=== PATIENT | female | born 1960 | race Caucasian/White ===

== ENCOUNTER → 2017-05-05 | Day surgery (SDC) | payer OTHER ==
[~2017-05-05] MED LIST: BUPIVACAINE/EPINEPHRINE 0.5% PF 10 ML VIAL ONE; KETOROLAC TROMETHAMINE 30 MG/ML (IVP) VIAL IV PUSH ONE; LACTATED RINGER'S 1000 ML INJ 1,000 ML ONE; MORPHINE SULFATE 4 MG/ML INJ ONE; ONDANSETRON HCL 4 MG/2 ML VIAL IV PUSH ONE; PROPOFOL 200 MG/20 ML AMP IV ONE; ceFAZolin INJ 1,000 MG VIAL ONE
--- NOTE | 2017-05-05 15:55 | TN ---
cc: ADELSO RM DATE OF SURGERY: 05/05/2017. PREOPERATIVE DIAGNOSIS: 1. Internal derangement of the right knee. 2. Probable medial meniscus tear right knee. 3. Possible lateral meniscus tear right knee. POSTOPERATIVE DIAGNOSIS: 1. Complex bucket handle tear posterior medial meniscus. 2. Osteoarthritis of the right knee, mild. 3. 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 OPERATIVE PROCEDURE PERFORMED: 1. Arthroscopy of the right knee. 2. Arthroscopic medial and partial lateral meniscectomy. 3. Minor abrasion chondroplasty. SURGEON: Adelso Rm MD. ANESTHESIA: General. ESTIMATED BLOOD LOSS Minimal. INDICATIONS FOR THE PROCEDURE: This patient is a 57-year-old female with significant right knee pain. Investigative studies show evidence of a complex tear of the posterior medial meniscus. There may also be a lateral meniscus. She presents for surgical treatment. DESCRIPTION OF THE PROCEDURE IN DETAIL: The patient was brought into the operating room and anesthetized in the supine position. The right leg was scrubbed with alcohol followed by Hibiclens followed Chloraprep and draped sterilely. Antibiotics were given within one hour time window and a time-out was done. Inflow was established anterior and laterally. The suprapatellar pouch was unremarkable. The retropatellar surface showed minimal grade 1 changes. There were no loose bodies in the medial or lateral gutter. The medial compartment showed evidence of a bucket handle tear that had ruptured. A portion was flipped back into the notch and the rest was flipped back posteriorly above the meniscus. There were grade 1 changes of the tibial plateau and medial femoral condyle. The ACL had a normal appearance to it and the lateral compartment showed a discoid lateral meniscus with a small degenerative tear. A spinal needle was introduced along medial joint line. A separate incision was made. Straight and angled punches were used to take the medial meniscus back to a stable rim from approximately the three o'clock position of the posterior horn. The meniscal debrider was used to smooth the edges. The rest of the meniscus had a normal appearance. A minor abrasion chondroplasty was necessary. For the lateral compartment, we used the meniscal debrider to shave the lateral meniscus without removing the entire meniscus but mostly just the free edge degenerative tear. The portals were injected with 0.5% Marcaine with epinephrine. They were closed with Steri-Strips and Benzoin and a sterile dressing was applied. The patient awakened and taken to the recovery room in satisfactory condition. MD WILLIAM Haywood/JUANA /2:11 PM /3:50 PM
== END | disposition home or self-care (01) ==
LOC: ESDC 11:27
PROVIDERS: ATTEND Orthopaedic Surgery Orthopaedic Surgery of the Spine
DX: S83.211A Bucket-handle tear of medial meniscus, current injury, right knee, initial encounter (principal); S83.281A Other tear of lateral meniscus, current injury, right knee, initial encounter; M17.11 Unilateral primary osteoarthritis, right knee
CPT/HCPCS: 01400; 29880; J0690; J1885; J2270; J2405; J3010; J7120